=== PATIENT | male | born 1955 | race Caucasian/White ===

== ENCOUNTER 2017-07-13 10:17 | Observation (INO) | payer OTHER ==
[~2017-07-13] VITALS: Ht 177.8 cm; Wt 105.7 kg
[2017-07-13] MEDS ORDERED: ASPIRIN 81 MG CHEW TAB PO ONE (10:45)
[2017-07-13 11:14] LABS: BILIRUBIN,URINE NEGATIVE (NEGATIVE); CLARITY,URINE CLEAR (CLEAR); COLOR,URINE YELLOW (YELLOW); KETONES,URINE NEGATIVE (NEGATIVE); LEUKOCYTE ESTERASE ,URINE NEGATIVE (NEGATIVE); NITRITE,URINE NEGATIVE (NEGATIVE); PROTEIN,URINE DIPSTICK NEGATIVE (NEGATIVE); URINE UROBILINOGEN 0.2 mg/dL (0.2 - 1)
[2017-07-13 11:28] LABS: RBC,URINE 0-5 /HPF (0-5); WBC,URINE (MAN) 0-5 /HPF (0-5)
--- NOTE | 2017-07-13 12:12 | Diagnostic Imaging Report ---
PROCEDURE: CHEST SINGLE (PORTABLE) COMPARISON: Report of chest x-ray performed 05/02/14. INDICATIONS: CHEST PAIN FINDINGS: LUNGS: No consolidations or edema. Calcification in the right upper lobe measures 4 mm suggestive of a granuloma PLEURA: No effusions or pneumothorax. HEART \T\ MEDIASTINUM: The heart is within normal size-limits. Calcified subcentimeter right hilar lymph nodes are present. BONES \T\ SOFT TISSUES: No focal osseous lesions. Soft tissues are unremarkable. CONCLUSION: No acute thoracic abnormality. Dictated by: Bianca Bae M.D. on 07/13/2017 at 12:12 Electronically approved by: Bianca Bae M.D. on 07/13/2017 at 12:12
[2017-07-13 12:41] LABS: BASOPHILS % 0.5 % (0.0-1.0); EOSINOPHILS % 0.2 % (0.0-6.0); HEMOGLOBIN 13.2 g/dL (14.0-18.0); LYMPHOCYTES # (AUTO) 1.1 (1.0-3.2); LYMPHOCYTES % 16.6 % (18.0-39.1); MEAN CORPUSCULAR HEMOGLOBIN 30.8 pg (28-32); MEAN CORPUSCULAR HGB CONC 33.8 g/dL (31-35); MEAN CORPUSCULAR VOLUME 91.1 fL (81-99); MONOCYTES # (AUTO) 0.2 (0.2-0.8); MONOCYTES % 2.5 % (4.4-11.3); NEUTROPHILS % 78.5 % (38.7-80.0); PLATELET COUNT 214 x10e3/uL (140-360); RED BLOOD COUNT 4.28 x10e6/uL (4.3-5.7); RED CELL DISTRIBUTION WIDTH 13.6 % (11.7-14.4)
[2017-07-13 12:52] LABS: ALANINE AMINOTRANSFERASE 52 IU/L (0-55); ALBUMIN 4.7 g/dL (3.5-5.0); ALBUMIN/GLOBULIN RATIO 1.6 (0.8-2.0); ALKALINE PHOSPHATASE 49 IU/L (40-150); ANION GAP 15.8 mmol/L (8-16); BLOOD UREA NITROGEN 15 mg/dL (7-26); BUN/CREATININE RATIO 13 (6-25); CARBON DIOXIDE 24 mmol/L (22-29); CHLORIDE 106 mmol/L (98-107); CREATINE KINASE 1190 IU/L (30-200); CREATININE, SERUM 1.16 mg/dL (0.72-1.25); EST GLOMERULAR FILTRATION RATE > 60 ML/MIN (60-); GLUCOSE 181 mg/dL (74-118); POTASSIUM 3.8 mmol/L (3.5-5.1); SODIUM 142 mmol/L (136-145)
[2017-07-13] MEDS ORDERED: ONDANSETRON HCL INJ 2 MG/ML VIAL IV PRN (14:15)
[2017-07-13] MEDS ORDERED: NITROGLYCERIN 0.4 MG SUBL SL PRN (14:15)
[2017-07-13] MEDS ORDERED: FAMOTIDINE 20 MG TAB PO SCH (14:15)
[2017-07-13] MEDS ORDERED: SODIUM CHLORIDE FLUSH 10 ML SYR INJ PRN (14:15)
[2017-07-13] MEDS ORDERED: MORPHINE SULFATE 2 MG/ML SYR IV PRN (14:15)
--- OUTSIDE RECORDS SUMMARY | 2017-07-13 15:28 | XMS REPORT ---
Author Author [facility] Address Unknown Phone Unavailable Care Team Providers Care Senior Patient Account Representative Name Role Phone TAMIKO WALLER Unavailable Unavailable Problems This patient has no known problems. Allergies, Adverse Reactions, Alerts This patient has no known allergies or adverse reactions. Medications This patient has no known medications. Results Test Description Test Time Test Comments Text Results Atomic Results Result Comments CHEST SINGLE (PORTABLE) [place] [id number] Patient Name: IDA LOPEZ MR #: [id number] : 1955 Age/Sex: 62/M Req #: [id number] Adm Physician: Ordered by: WHIT VAZQUEZ [employer] Report # : [id number] Location: ER Room/Bed: Procedure: [id number] [id number] DX/CHEST SINGLE (PORTABLE) Exam Date: 07/13/17 Exam Time: 1110 REPORT STATUS: Signed PROCEDURE: CHEST SINGLE ( PORTABLE) COMPARISON: Report of chest x-ray performed 05/02/14. INDICATIONS : CHEST PAIN FINDINGS: LUNGS: No consolidations or edema. Calcification in the right upper lobe measures 4 mm suggestive of a granuloma PLEURA: No effusions or pneumothorax. HEART T MEDIASTINUM: The heart is within normal size-limits. Calcified subcentimeter right hilar lymph nodes are present. BONES T SOFT TISSUES: No focal osseous lesions. Soft tissues are unremarkable. CONCLUSION: No acute thoracic abnormality. Dictated by: Lavonne Bae M.D. on 07/13/2017 at 12:12 Electronically approved by: Lavonne Bae M.D. on 07/13/2017 at 12:12 Dictated By: LAVONNE BAE MD 11 Transcribed By : DUONG on 07/13/171211 COPY TO: WHIT VAZQUEZ NP
[2017-07-13 16:30] VITALS: BP 165/95
[2017-07-13 17:06] VITALS: BP 165/90
[2017-07-13 17:16] VITALS: BP 165/90
[2017-07-13] MEDS ORDERED: LOSARTAN POTASS25 MG PO (18:20)
[2017-07-13] MEDS ORDERED: ZYRTEC10 MG PO (18:20)
[2017-07-13] MEDS ORDERED: SODIUM CHLORIDE 0.9% 500ML 500 ML ONE (18:45)
--- NOTE | 2017-07-13 19:28 | Discharge Summary ---
CLINICAL HISTORY: This is a 62-year-old white man admitted via the emergency room because of chest pains and persistent cough. Please refer to my previous dictation concerning details of current illness, past medical history, personal/social history, family history, review of systems, physical examination and initial laboratory studies. HOSPITAL COURSE: As previously mentioned, this patient has had this cough treated with multiple rounds of antibiotics and steroids without improvement for the past 2 months. He is physically active and has had no exertional related chest discomfort including mowing the yard and put in a kitchen sink recently. His troponin is normal. His CK is 1190 and CK-MB was 5.8, probably related to his bouts of coughing and muscle ache. His EKG is completely normal. It is felt that he should switch his Ramipril to losartan and should have outpatient stress test. His heart murmur appears to be benign, but he can have an echocardiogram on outpatient basis. He is anxious to go home. He will see me for followup in 1 week. DISCHARGE DIAGNOSES: Essentially the same with some degree of rhabdomyolysis due to coughing. KENYATTA PICKETT MD Job#: [id number] cc:MAYO GARDINER MD cc:VIELKA HARRIS MD
[2017-07-13 19:43] LABS: CREATINE KINASE 705 IU/L (30-200)
--- NOTE | 2017-07-13 23:24 | History and Physical ---
CLINICAL HISTORY: This is a 62-year-old white man with history of hypertension treated with Ramipril, admitted via the emergency room because of cough, and one episode of brief chest pains with radiation to the left arm associated with mild shortness of breath. His EKG failed to show any acute changes. This patient is physically active. He just mowed his yard and put in a kitchen sink without any exertional related chest discomfort. He has been taking Ramipril for many years and has had no cough; however, the past 2 or 3 weeks he has had rather severe cough. He has taken multiple rounds of antibiotics as well as steroids without improvement. He saw Dr. Da Silva many times and also has seen a new hydraulic miner on Tuesday and was given 50 mg of prednisone as well as several prostate medications. He said he is allergic to Flomax, but he was prescribed this medication in a generic form. He also took as well as promethazine 50 mg and prednisone as well as Levaquin. He was told he had a heart murmur and wanted to have an echocardiogram. In the meantime, he failed to improve. He came to the emergency room. Chest x-ray was clear. EKG was normal. He was admitted for further evaluation and treatment. PAST MEDICAL HISTORY: Remarkable for cholecystectomy at age 29. Psoriatic psoriasis skin biopsy. PERSONAL AND SOCIAL HISTORY: He has not smoked or drank for 30 years. 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 ALLERGIES: FLOMAX. REVIEW OF SYSTEMS: Noncontributory. PHYSICAL EXAMINATION: GENERAL: He is alert and coherent. VITAL SIGNS: Stable. CARDIOVASCULAR: Jugular veins are not distended. S1 and S2 were regular. There is no appreciable murmurs. LUNGS: Clear. ABDOMEN: Soft. Bowel sounds are present. EXTREMITIES: Show no cyanosis, clubbing or edema. IMPRESSION: 1. Possible FIDENCIO inhibitor (Ramipril) induced cough. 2. Possible allergic rhinitis. 3. Benign prostatic hypertrophy, previously evaluated by Dr. Felix Harris with. The patient allergic to Flomax to consider TURP procedure. 4. Multiple rounds of antibiotics and steroids for over the past 2 months without improvement. 5. Status post cholecystectomy. 6. Atypical chest pains, consider coronary artery disease. 7. Benign sounding systolic heart murmur, apparently chronic. He has been told that he has had this in the past (leaking valve). RECOMMENDATIONS: The patient was anxious to go home. We, therefore, discharged him to do an outpatient stress test as well as echocardiogram. He is encouraged to discontinue Ramipril and to substitute Losartan. For his cough, he may try Robitussin DM and for his allergic rhinitis consider Zyrtec. He can continue Finasteride and will see Dr. Felix Harris. He should avoid Flomax since he is allergic. Job#: [id number] cc:MAYO DA SILVA MD cc:FELIX HARRIS MD
[2017-07-14] MEDS ORDERED: ASPIRIN 81 MG ENTERIC COATED PO SCH (09:00)
== END 2017-07-13 20:53 | disposition home or self-care (01) ==
LOC: ER 10:17 → ERHOLD 15:25 → IMCU 15:27
PROVIDERS: ADMIT Internal Medicine Cardiovascular Disease; ATTEND Internal Medicine Cardiovascular Disease
DX: R07.89 Other chest pain (principal); R05 Cough; I10 Essential (primary) hypertension; N40.0 Benign prostatic hyperplasia without lower urinary tract symptoms; I38 Endocarditis, valve unspecified; M62.82 Rhabdomyolysis
CPT/HCPCS: 36415; 71045; 80053; 81001; 82550; 82553; 83605; 84443; 84484; 85025; 93005; 99284; G0378; J7040